=== PATIENT | male | born 1990 | race Caucasian/White ===

== ENCOUNTER 2016-03-15 18:26 | Emergency (ER) | payer BC ==
--- NOTE | 2016-03-15 19:20 | UCPHY ---
H & P Time Seen by Provider: 03/15/16 18:57 Patient Type: New HPI/ROS: This patient has a psychiatric history of mood disorder and [place] from out of state 1 [place] ago from [place]. He ran out of his Seroquel 1 week ago after having taken half dose for the previous month to tried a stretch it out. He reports that he gets anger issues off of his medications and today he felt angry he has reports that he is not certain if he intended to kill himself". He reports that he didn't sleep for 3 days, "things got a little dark & (his) new knife was sharper than (he) thought." He explains that he thinks he only intended to hurt himself given the location he chose to cut -left upper lateral arm. Patient drank to 3 beers at around 2:00 p.m. near the time of the injury. He then tried to repair the wound with a friend with super glue at home prior to coming in for evaluation with his girlfriend. The patient acknowledges that he needs some psychiatric assistance. He understands that I placed him on a an M1 hold & he intends to cooperate. ROS: He denies any headache. No other somatic symptoms except for the pain at the arm. Reports this is moderate. There is also moderate bleeding that slowed with direct pressure. He denies any numbness or tingling associated with this. He admits smoking marijuana in addition but denies any other coingestion is today. Admits desire for self harm but denies homicidal ideation. He reports insomnia for 3 nights with no sleep for 3 nights. 10 point ROS is otherwise negative. 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 He then was in [place] for brief time prior to moving to [place] 1 month ago. Daily marijuana Intermittent alcohol including 3 beers [employer]. He denies any other drug use Smoking Status: Light smoker Physical Exam: Physical Exam Vital signs are normal. General: No acute distress HEENT: Atraumatic. Has alcohol halitosis on his breath. Oropharynx is clear Eyes: Pupils equal and react to light. Extraocular motions are intact. Mild conjunctival injection. Pupils 4 mm equal react to light Lungs: No respiratory distress. Cardiac: Brisk capillary refill is intact throughout. Pulses are 2+ and symmetric in the affected extremity. Skin: No rash or pallor. Patient has a 14 cm full-thickness laceration left upper lateral arm with mild to mod bleeding to the proximal half of the wound. Super glued impregnated in approximately 3 cm of the wound to the lower aspect and is adjacent to the wounds and another 2 cm. Subcutaneous tissues evident but no deeper structures are injured. Neuro: Alert and oriented x3 with no sensorimotor deficits. Maintains normal light touch sensory exam to affected arm and 5/5 strength bilateral upper and lower extremities. Psychiatric: He admits desire for self harm but denies suicidal ideation. He has mildly pressured speech here at times. He admits depression. No psychotic symptoms while in the clinic. Initial differential diagnosis: Cutter, potential suicidal ideation/intent, bella or hypomania, polysubstance abuse, arm laceration -self-induced Constitutional: Initial Vital Signs Temperature (C) 37.1 C 03/15/16 18:55 Heart Rate 76 03/15/16 18:55 Respiratory Rate 18 03/15/16 18:55 Blood Pressure 142/106 H 03/15/16 18:55 O2 Sat (%) 99 03/15/16 18:55 O2 Delivery Mode Room Air Allergies/Adverse Reactions: No Known Allergies Allergy (Verified 03/15/16 19:08) Home Medications: Medication Instructions Recorded Nexium 03/15/16 Seroquel 03/15/16 MDM/Departure - MDM Procedures: The wound is 14 cm full-thickness. The wound was copiously irrigated with saline. The wound was explored for foreign bodies and none were found. The wound was prepped and draped in the normal sterile fashion. Acetone nail- danish remover was required to remove the super glue. This was followed by baby shampoo and saline for scrubbing. The wound was anesthetized using 50 50 mix of 1% plain lidocaine and 0.5% Marcaine, 27 gauge needle, 14 mL with good effect. The edges were reapproximated using 4 0 Ethilon-33 running sutures with good hemostasis and cosmesis. The patient tolerated the procedure well. There were no complications. Dressing is placed ED Course/Re-evaluation: Patient remains pleasant cooperative. He has some insight into his psychiatric illness and realizes that he needs some assistance and is willing to have the admission. He generally denies suicidal intent but admits that he felt and pulse of an angry at the time he cut his arm. He has a history of and near fatal femoral artery self-induced wound this is a certainly warrants further evaluation psychiatrically. I placed him on M1 hold. I spoke with Dr. Bundy at [facility] Emergency department who accepts the patient for transfer - Depart Disposition: [facility] ER Clinical Impression: Self-inflicted laceration of arm, Polysubstance dependence Condition: Fair - PQRS PQRS Measurement: NA
[2016-03-15 20:33] VITALS: TEMP 98.4; O2SAT 97
[2016-03-15] MEDS ORDERED: IBUPROFEN 200 MG TAB PO ONE ×2 (20:45→20:46)
[2016-03-15 22:07] LABS: % IMMATURE GRANULYOCYTES 0.3 % (0.0-1.1); ABSOLUTE IMMATURE GRANULOCYTES 0.02 10^3/uL (0.00-0.10); ADD DIFF? NO; ADD MORPH? NO; ADD SCAN? NO; ATYPICAL LYMPHOCYTE FLAG 10 (0-99); FRAGMENT RBC FLAG 0 (0-99); HEMATOCRIT 44.9 % (40.0-51.0); HEMOGLOBIN 15.5 g/dL (13.7-17.5); LEFT SHIFT FLG 0 (0-99); LIPEMIA HEMOLYSIS FLAG 90 (0-99); MEAN CELL HEMOGLOBIN 29.2 pg (27.9-34.1); MEAN CELL HEMOGLOBIN CONCENTR. 34.5 g/dL (32.4-36.7); MEAN CELL VOLUME 84.6 fL (81.5-99.8); MEAN PLATELET VOLUME 9.1 fL (8.7-11.7); PLATELET CLUMPS FLAG 0 (0-99); PLATELET COUNT 276 10^3/uL (150-400); RED BLOOD CELL COUNT 5.31 10^6/uL (4.40-6.38)
[2016-03-15 22:18] LABS: CHLORIDE 106 mEq/L (97-110)
[2016-03-15 22:21] LABS: ANION GAP 19 mEq/L (8-16); CALCIUM 9.3 mg/dL (8.5-10.4); CARBON DIOXIDE 19 mEq/l (22-31); CREATININE 0.9 mg/dL (0.7-1.3); GLOMERULAR FILTRATION RATE > 60; GLUCOSE 83 mg/dL (70-100); POTASSIUM 3.6 mEq/L (3.5-5.2); SODIUM 144 mEq/L (134-144)
[2016-03-15 22:22] LABS: ETHANOL SERUM 128 mg/dL (0-10)
--- NOTE | 2016-03-16 00:23 | EDPHY ---
H & P Time Seen by Provider: 03/15/16 18:57 HPI/ROS: HPI CHIEF COMPLAINT: Self-inflicted left arm laceration while intoxicated, on M1 hold from [facility] HISTORY OF PRESENT ILLNESS: This patient is a very pleasant 25-year-old male significant past medical history for depression, and takes Seroquel for sleep, he presents to the emergency room after was seen at [facility] urgent care for self inflicted vertical rather large laceration to his left upper extremity. He tells me that he just bought a new knife off [employer] tells me he does enjoy a cutting himself however this was not a suicide attempt he did not Wanna kill himself. He tells me that he did realize how sharp knife was and cut too big of a laceration. This required stitches. This was repaired at [facility]. He then presented from [facility] to the ER as he is on M1 hold. Upon my evaluation he is resting comfortably has no complaints he denies SI he is on M1 hold. He will need mental health evaluation at this time is medically cleared he does tell me that he sustained this laceration self- inflicted while he was drunk with alcohol. 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 Exam Constitutional triage nursing summary reviewed, vital signs reviewed, awake/ alert. Eyes normal conjunctivae and sclera, EOMI, PERRLA. HENT normal inspection, atraumatic, moist mucus membranes, no epistaxis, neck supple/ no meningismus, no raccoon eyes. Respiratory clear to auscultation bilaterally, normal breath sounds, no respiratory distress, no wheezing. Cardiovascular rate normal, regular rhythm, no murmur, no edema, distal pulses normal. Gastrointestinal soft, non-tender, no rebound, no guarding, normal bowel sounds, no distension, no pulsatile mass. Genitourinary no CVA tenderness. Musculoskeletal no midline vertebral tenderness, full range of motion, no calf swelling, no tenderness of extremities, no meningismus, good pulses, neurovascularly intact. Skin pink, warm, & dry, no rash, skin atraumatic. Neurologic awake, alert and oriented x 3, AAOx3, moves all 4 extremities equally, motor intact, sensory intact, CN II-XII intact, normal cerebellar, normal vision, normal speech. Psychiatric normal mood/affect. Heme/Lymph/Immune no lymphadenopathy. Differential Diagnosis: Includes but is not limited to in a particular order, self-inflicted left upper extremity laceration now status post repair, depression, poor sleep hygiene, need for evaluation by mental health given self- inflicted laceration, M1 hold Medical Decision Making: this patient is medically cleared at this time blood work alcohol level reviewed. Laceration is already been repaired. Patient is on M1 hold due to self-inflicted wound. Patient will need mental health evaluation. Re-evaluation at this time 12:37 a.m. this patient is not suicidal his, cooperative he speaks coherently to me he tells me this was an accident he did not realize it was going to be such a large laceration and he was drunk when this happened. He will get a mental health evaluation most likely be discharged home. 0130: patient seen evaluated by myself as well as mental health. Patient is not suicidal they did consult Dr. Arias the psychiatrist she feels that the patient does not need to remain on M1 hold to be discharged safely from the emergency room they did request that I prescribe a limited supply of Seroquel which I will. Patient does understand if he feels suicidal more depressed or has any questions or concerns return to the ER. Source: Patient, EMS - Personal History Current Tetanus Diphtheria and Acellular Pertussis (TDAP): Yes Tetanus Vaccine Date: 2013? - Medical/Surgical History Hx Asthma: No Hx Chronic Respiratory Disease: No Other PMH: Med hx-depression/Gerd. Surg- - Social History Smoking Status: Light smoker Constitutional: Initial Vital Signs Temperature (C) 37.1 C 03/15/16 18:55 Heart Rate 76 03/15/16 18:55 Respiratory Rate 18 03/15/16 18:55 Blood Pressure 142/106 H 03/15/16 18:55 O2 Sat (%) 99 03/15/16 18:55 O2 Delivery Mode Room Air Allergies/Adverse Reactions: No Known Allergies Allergy (Verified 03/15/16 19:08) Home Medications: Medication Instructions Recorded Nexium 03/15/16 Seroquel 03/15/16 QUEtiapine FUMARATE [Seroquel 200 200 mg PO DAILY #10 tab 03/16/16 mg (*)] Medical Decision Making - Data Points Laboratory Results: Laboratory Results 03/15/16 21:40 03/15/16 21:40 03/15/16 03/15/16 21:40 21:17 WBC 5.80 10^3/uL (3.80-9.50) RBC 5.31 10^6/uL (4.40-6.38) Hgb 15.5 g/dL (13.7-17.5) Hct 44.9 % (40.0-51.0) MCV 84.6 fL (81.5-99.8) MCH 29.2 pg (27.9-34.1) MCHC 34.5 g/dL (32.4-36.7) RDW 12.0 % (11.5-15.2) Plt Count 276 10^3/uL (150-400) MPV 9.1 fL (8.7-11.7) Neut % (Auto) 46.0 % (39.3-74.2) Lymph % (Auto) 44.8 % (15.0-45.0) Davison % (Auto) 7.8 % (4.5-13.0) Eos % (Auto) 0.2 L % (0.6-7.6) Baso % (Auto) 0.9 % (0.3-1.7) Nucleat RBC Rel Count 0.0 % (0.0-0.2) Absolute Neuts (auto) 2.67 10^3/uL (1.70-6.50) Absolute Lymphs (auto) 2.60 10^3/uL (1.00-3.00) Absolute Monos (auto) 0.45 10^3/uL (0.30-0.80) Absolute Eos (auto) 0.01 L 10^3/uL (0.03-0.40) Absolute Basos (auto) 0.05 10^3/uL (0.02-0.10) Absolute Nucleated RBC 0.00 10^3/uL (0-0.01) Immature Gran % 0.3 % (0.0-1.1) Immature Gran # 0.02 10^3/uL (0.00-0.10) Sodium 144 mEq/L (134-144) Potassium 3.6 mEq/L (3.5-5.2) Chloride 106 mEq/L (97-110) Carbon Dioxide 19 L mEq/l (22-31) Anion Gap 19 mEq/L (8-16) BUN 10 mg/dL (7-23) Creatinine 0.9 mg/dL (0.7-1.3) Estimated GFR > 60 Glucose 83 mg/dL (70-100) Calcium 9.3 mg/dL (8.5-10.4) Urine Opiates Screen NEGATIVE (NEGATIVE) Acetaminophen < 10 L mcg/mL (10.0-30.0) Urine Barbiturates NEGATIVE (NEGATIVE) Ur Phencyclidine Scrn NEGATIVE (NEGATIVE) Ur Amphetamine Screen NEGATIVE (NEGATIVE) U Benzodiazepines Scrn NEGATIVE (NEGATIVE) Urine Cocaine Screen NEGATIVE (NEGATIVE) U Marijuana (THC) Screen NON-NEGATIVE H (NEGATIVE) Ethyl Alcohol 128 H mg/dL (0-10) Medications Given: Discontinued Medications Ibuprofen (Motrin) 600 mg PO EDNOW ONE Stop: 03/15/16 20:46 Last Admin: 03/15/16 20:48 Dose: 600 mg Departure - Departure Disposition: Home, Routine, Self-Care Clinical Impression: Self-inflicted laceration of arm, Polysubstance (excluding opioids) dependence Condition: Fair Instructions: Laceration (ED), Care For Your Stitches (ED) Additional Instructions: 1.Please monitor your wound closely for signs of infection 2. please have your sutures removed in 10-12 days. 3. Return emergency room if develops any worsening symptoms questions or concerns. Referrals: NONE *PRIMARY CARE P,. [Primary Care Provider] - As per Instructions Prescriptions: QUEtiapine FUMARATE [Seroquel 200 mg (*)] 200 mg PO DAILY #10 tab
[2016-03-16 03:35] VITALS: RESP 16
[2016-03-16 03:36] VITALS: BP 144/92; PULSE 89
== END 2016-03-16 03:35 | disposition home or self-care (01) ==
LOC: CED 18:26
DX: S41.112A Laceration without foreign body of left upper arm, initial encounter (principal); F19.10 Other psychoactive substance abuse, uncomplicated; F17.200 Nicotine dependence, unspecified, uncomplicated; X78.1XXA Intentional self-harm by knife, initial encounter
CPT/HCPCS: 80305; G0463-PO; G0480

== ENCOUNTER 2016-05-17 16:56 | Inpatient (IN) | payer BC ==
[2016-05-17 17:18] LABS: % IMMATURE GRANULYOCYTES 0.2 % (0.0-1.1); ABSOLUTE IMMATURE GRANULOCYTES 0.02 10^3/uL (0.00-0.10); ADD DIFF? NO; ADD MORPH? NO; ADD SCAN? NO; ATYPICAL LYMPHOCYTE FLAG 0 (0-99); FRAGMENT RBC FLAG 0 (0-99); HEMATOCRIT 49.6 % (40.0-51.0); HEMOGLOBIN 16.9 g/dL (13.7-17.5); LEFT SHIFT FLG 0 (0-99); LIPEMIA HEMOLYSIS FLAG 90 (0-99); MEAN CELL HEMOGLOBIN 28.8 pg (27.9-34.1); MEAN CELL HEMOGLOBIN CONCENTR. 34.1 g/dL (32.4-36.7); MEAN CELL VOLUME 84.6 fL (81.5-99.8); MEAN PLATELET VOLUME 9.5 fL (8.7-11.7); PLATELET CLUMPS FLAG 0 (0-99); PLATELET COUNT 281 10^3/uL (150-400); RED BLOOD CELL COUNT 5.86 10^6/uL (4.40-6.38); RED CELL DISTRIBUTION WIDTH 12.2 % (11.5-15.2)
[2016-05-17 17:28] LABS: ANION GAP 14 mEq/L (8-16); CALCIUM 10.4 mg/dL (8.5-10.4); CARBON DIOXIDE 18 mEq/l (22-31); CHLORIDE 108 mEq/L (97-110); CREATININE 0.8 mg/dL (0.7-1.3); ETHANOL SERUM < 10 mg/dL (0-10); GLOMERULAR FILTRATION RATE > 60; GLUCOSE 80 mg/dL (70-100); POTASSIUM 4.8 mEq/L (3.5-5.2); SALICYLATE < 1.0 mg/dL (2.0-20.0); SODIUM 140 mEq/L (134-144); SPECIMEN HEMOLYSIS 119
--- NOTE | 2016-05-17 17:48 | EDPHY ---
H & P Smoking Status: Light smoker Time Seen by Provider: 05/17/16 17:02 HPI/ROS: CHIEF COMPLAINT: M1 suicidal ideation HISTORY OF PRESENT ILLNESS: 25-year-old male history of depression, history of suicide attempt, in the ER on an M1 hold after endorsing increasing depression with plan to kill himself with a gun. He does have access to a gun. Prior history of cutting behavior. Denies recently. Off of medications. denies self -injury recently. Denies complaints of physical pain. Denies alcohol or drug use. REVIEW OF SYSTEMS: A ten point review of systems was performed and is negative with the exception of the items mentioned in the HPI PAST MEDICAL & SURGICAL HISTORY: depression SOCIAL HISTORY: denies alcohol or drug use PHYSICAL EXAM (Prior to examination, patient consented to physical exam, hands were washed and my usual and customary physical exam procedures followed) 1) GENERAL: Well-developed, well-nourished, alert and oriented. Depressed, flat affect . 2) HEAD: Normocephalic, atraumatic 3) HEENT: Pupils equal, round, reactive to light bilaterally. Sclera anicteric. Nasopharynx, oropharynx, clear, no lesions. Ears bilaterally with normal tympanic membranes. 4) NECK: Full range of motion, no meningeal signs. 5) LUNGS: Clear auscultation bilaterally, no wheezes, no rhonchi, no retractions. 6) HEART: Regular rate and rhythm, no murmur, no heave, no gallop. 7) ABDOMEN: No guarding, no rebound, no focal tenderness, negative McBurney's, negative Amanda's, negative Rovsing's, negative peritoneal sign, 8) MUSCULOSKELETAL: Moving all extremities, no focal areas of tenderness, no obvious trauma. No peripheral edema or discoloration. 9) BACK: No CVA tenderness, no midline vertebral tenderness, no fluctuance, no step-off, no obvious trauma, no visual or palpable abnormality. 10) SKIN: multiple linear scars, none acute 11) Psychiatric: Patient is oriented X 3, depressed, flat affect. Calm cooperative DIFFERENTIAL DIAGNOSIS: [ in no particular include but limited to suicidal ideation homicidal ideation, depression (Genaro,Jinny Sheron) Constitutional: Initial Vital Signs Temperature (C) 37.5 C 05/17/16 17:09 Heart Rate 66 05/17/16 17:09 Respiratory Rate 20 05/17/16 17:09 Blood Pressure 163/91 H 05/17/16 17:09 O2 Sat (%) 99 05/17/16 17:09 O2 Delivery Mode Room Air Allergies/Adverse Reactions: No Known Allergies Allergy (Verified 03/15/16 19:08) Home Medications: Medication Instructions Recorded Melatonin [Melatonin 3 MG (*)] 3 mg PO HS PRN 05/17/16 MDM/Departure - MDM Medications Given: Discontinued Medications Quetiapine Fumarate (Seroquel) 150 mg PO HS KYLEE Stop: 11/13/16 22:59 Last Admin: 05/17/16 23:01 Dose: 150 mg ED Course/Re-evaluation: 9:00 p.m. patient has been evaluated by mental health and has been accepted for admission to [address] [place] [address] (Duarte Conley) - Depart Disposition: [facility] IP Clinical Impression: Suicidal ideation, Severe major depression Condition: Fair
[2016-05-17] MEDS ORDERED: ACETAMINOPHEN 325 MG TAB PO PRN (22:47)
[2016-05-17] MEDS ORDERED: MAG HYDROX/AL HYDROX/SIMETH 30 ML UDCUP PO PRN (22:48)
[2016-05-17] MEDS ORDERED: MAGNESIUM HYDROXIDE 30 ML UDCUP PO PRN (22:48)
[2016-05-17] MEDS ORDERED: QUEtiapine FUMARATE 50 MG TAB PO SCH (23:00)
--- NOTE | 2016-05-18 09:03 | GCON ---
[f rep st] CONSULTATION DATE OF CONSULTATION: 05/18/2016 The patient is a 25-year-old gentleman with a history of depression admitted to [facility]. I am seeing him on 05/18/2016. The patient was admitted with suicidality with a plan and a gun. When I speak with him, he denies f ever, chills, cough, sputum, nausea, vomiting, diarrhea, recent unexplained weight loss or night swe ats. There was some concern over some erythema on his knee which is his left knee. He has not had fever, chills or lymphangitic streaking or pain in his groin. He says he had a recent laceration that was subsequently super glued and some of the super glue ripped off his skin leaving an eschar which he then disturbed during intercourse. He is a nonsmoker, nondrinker and does not use IV drugs. REVIEW OF SYSTEMS: Complete 10-point review of systems conducted. Negative except as noted in the HPI. PAST MEDICAL HISTORY: 1. Depression. 2. Reflux. ALLERGIES: No known drug allergies. HOME MEDICATIONS: Nexium. SOCIAL HISTORY: The patient is a nonsmoker, nondrinker. Originally from [place]. Lives here in [facility] with a roommate and an ex-girlfriend. FAMILY HISTORY: Reviewed and unremarkable. PHYSICAL EXAMINATION: PRESENTING VITALS: Blood pressure 163/91, pulse 66, breathing 20 times a min aby, 99% on room air. Temp 37.5. He did have a pulse of 114 at 6:00 a.m. this morning. GENERAL: No acute distress. HEENT: Sclerae anicteric. Oropharynx clear. Mucous membranes moist. NECK: S upple, without lymphadenopathy. JVD. LUNGS: Clear to auscultation bilaterally. HEART: S1, S2. ABDOMEN: Soft, nontender, nondistended. LOWER EXTREMITIES: His left knee cap just over the patell a shows about 2.5 cm lateral incision that has been super glued shut, is actually quite a good job. Lateral to that is an eschar with some surrounding erythema consistent with a healing eschar. Ther e is no lymphangitic streaking. There is no tenderness. There is no fluctuance. There is no ingui nal lymphadenopathy on that side. Skin otherwise without rash. NEUROLOGIC: Nonfocal. LABS: Sodium 140, potassium 4.8, chloride 108, bicarb 18, anion gap is 14, BUN 14, creatinine 0.8, glucose is 80, calcium 10.4. White count 10.6, hematocrit 49.6, platelets are 281,000. Tox screen is negative for marijuana, otherwise unremarkable. There is no imaging. I have discussed the case with psychiatry MD. ASSESSMENT AND PLAN: This is a 25-year-old gentleman with depression. He is admitted with suicidal ity. 1. Suicidality management per psych. The patient is not actively complaining of suicidality to me. 2. Question cellulitis of his leg. I do not believe this represents cellulitis. I think that the erythema is consistent with somebody with a pale complexion and a healing wound. He has no secondar y evidence of infection and his white count is only modestly elevated. Would follow. The indicatio ns for antibiotics would be fever, fluctuance, etc. 3. Acidosis. This is actually chronic. Looking back at his previous labs, he had a bicarb of 19 d uring his last hospitalization as well. Would follow. 4. Tachycardia. This is transient this morning. Would follow. He has not been tachycardic for th e rest of his vitals and would follow at this time. 5. Reflux. I have written him for Protonix. 6. A medical evaluation of psychiatric inpatient. TSH has not been checked. I have added it on. Please call if it is abnormal. Thank you for the consultation. Hospital Medicine will not follow. /[id number]
[2016-05-18] MEDS: PANTOPRAZOLE SODIUM 40 MG TAB PO SCH (09:10)
[2016-05-18] MEDS ORDERED: OLANZapine DISINTEGR 10 MG TAB PO PRN (17:02)
[2016-05-18] MEDS: LORazepam 1 MG TAB PO PRN (18:07)
[2016-05-18] MEDS: QUEtiapine FUMARATE 300 MG TAB PO SCH (20:40)
[2016-05-19 06:22] VITALS: O2SAT 96
[2016-05-19] MEDS: PANTOPRAZOLE SODIUM 40 MG TAB PO SCH (08:39)
[2016-05-19] MEDS: LORazepam 1 MG TAB PO PRN (08:50)
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
--- NOTE | 2016-05-19 17:54 | SOAPPROG ---
SOAP Progress Note Assessment/Plan: Assessment:Patient with Unspecified bipolar disorder, Cannabis Use Disorder, severe, in forced remission in a controlled environment, and unspecified alcohol use disorder reporting he feels much better today. Sleep and mood are fine today. He is tolerating the Seroquel. No safety issues. Plan: Will continue medications and treatment. Awaiting records from [facility]. 05/19/16 17:51 Subjective: He reports feel pretty great today. He is no longer feeling miserable. He denies problems with sleep last night. He denies irritability. He had a good conversation with his mother this AM, and he was able to speak briefly to his ex -girlfriend. He is feeling more hopeful. He denies SI. He believes he will have enough support if he remains in [place] after discharge. He did attend all the groups today, and he was complaint with medications. Objective: Vital Signs Temp Pulse Resp BP Pulse Ox 36.8 C 60 12 110/62 96 05/19/16 06:00 05/19/16 06:00 05/19/16 06:00 05/19/16 06:00 05/19/16 06:00 Obese, male sitting on the side of the bed. Fair eye contact (looks today a lot. Speech- Regular rate, limited inflection.Mood- "Pretty great." Affect- Euthymic. Thought Process- linear and gaol directed. Thought Content - No SI/HI. No AH/VH. - Time Spent With Patient Time Spent With Patient: 15 - Pending Discharge Pending Discharge Within 24 Hours: No Pending Discharge Within 48 Hours: No ICD10 Worksheet Patient Problems: Problems Problem Status Onset Severe major depression Acute Suicidal ideation Acute
[2016-05-19] MEDS: QUEtiapine FUMARATE 300 MG TAB PO SCH (20:15)
[2016-05-20] MEDS: PANTOPRAZOLE SODIUM 40 MG TAB PO SCH (09:16)
--- NOTE | 2016-05-20 13:44 | SOAPPROG ---
SOAP Progress Note Assessment/Plan: Assessment:Patient with Unspecified bipolar disorder, Cannabis Use Disorder, severe, in forced remission in a controlled environment, and unspecified alcohol use disorder reporting he feels much better today. Sleep and mood are fine today. He is tolerating the Seroquel. No safety issues. Plan: Will continue medications and treatment. Awaiting records from [facility] - not likely to receive before discharge. Guns to be disposed of. Likely discharge tomorrow. 05/19/16 17:51 05/20/16 13:40 Subjective: He reports things are going well. He had questions about his follow-up. He reports his roommates did get rid of the guns, and he signed a release so that Hussein can talk with them. He feels that the 300 MG of Seroquel is working well for his sleep and mood. Objective: Vital Signs Temp Pulse Resp BP Pulse Ox 36.9 C 63 14 115/71 96 05/20/16 06:00 05/20/16 06:00 05/20/16 06:00 05/20/16 06:00 05/20/16 06:00 Obese, male, good eye contact. Speech- RRR and tone. Mood- "Good." Affect- bright. Thought Process- linear and goal directed. Thought Content- No SI/HI. No AH/VH. - Time Spent With Patient Time Spent With Patient: 15 - Pending Discharge Pending Discharge Within 24 Hours: Yes Pending Discharge Within 48 Hours: Yes Pending Discharge Date: 05/21/16 Pending Discharge Time: 11:00 ICD10 Worksheet Patient Problems: Problems Problem Status Onset Severe major depression Acute Suicidal ideation Acute
[2016-05-20] MEDS: QUEtiapine FUMARATE 300 MG TAB PO SCH (20:15)
[2016-05-21 06:18] VITALS: BP 111/72; PULSE 84; RESP 15; TEMP 97.4
[2016-05-21] MEDS: PANTOPRAZOLE SODIUM 40 MG TAB PO SCH (12:31)
--- NOTE | 2016-05-21 17:18 | BDS ---
[f rep st] BEHAVIORAL HEALTH DISCHARGE SUMMARY ADMISSION DIAGNOSES: Unspecified bipolar disorder, attention deficit hyperactivity disorder by history, Asperger spectrum disorder, oppositional defiant disorder by history, cannabis use disorder, severe, enforced remission in a controlled environment, unspecified alcohol use disorder. REASON FOR ADMISSION: The patient was admitted to the hospital secondary to suicidal ideation. The patient reportedly had thoughts of taking a gun and shooting himself, and he did have access to a gun. The patient had recently come to believe that he had lost his job after he left his job in a fit of rage. He also had recently broken up with his girlfriend who was concerned about his fits of rage. PHYSICAL EXAMINATION: On physical examination at the time of admission, the patient was noted to have a history of reflux and he used Nexium to treat that on an outpatient basis. There was some question of cellulitis of his leg although this ultimately appears to have been ruled out. Instead it was felt to be erythema consistent with his pale complexion and a healing wound. He was noted to have some chronic acidosis that was just going to be followed. No treatment was called for at the time of his admission. He had some transient tachycardia that was also just going to be followed. ADMISSION LABORATORY VALUES: He again had the acidosis. There appeared to be nothing else of concern other than the fact that he did test positively for marijuana. HOSPITAL COURSE: The patient was started back on the Seroquel which he had previously taken as an outpatient. The Seroquel was increased to 300 mg daily, which was thought to be the minimum dosage to treat any type of mood disorder or psychotic symptoms. The patient did respond well to that dosage of medication. He stated he was sleeping well. His anxiety was relatively tame and his mood was stabilized. He was denying any further thoughts of wanting to harm himself. He had no thoughts of harming others. The patient did attend groups. He took his medications without problems. He got along well with peers and staff. On the unit, discussions were had with the patient about his guns. He did sign a release of information so that contact might be made with his ex-girlfriend and his other roommate. His ex-girlfriend did dispose of the guns in her car trunk, which she said he did not have access to, and the patient was not aware of where the guns had been disposed of. CONDITION AT DISCHARGE: At time of discharge, the patient was denying any thoughts of hurting himself or others. He was feeling very hopeful in that he had learned that he had not lost his job and there might be some hope for his relationship with his girlfriend. He had plans to go to the outpatient program located at [facility], and he had an appointment for May 26. He had plans to continue to take his Seroquel as prescribed. DISCHARGE DIAGNOSIS: Unspecified bipolar disorder, Asperger spectrum disorder, attention deficit hyperactivity disorder by history, oppositional defiant disorder by history, cannabis use disorder, sever, in forced remission in a controlled environment, unspecified alcohol used disorder. /[id number]/MODL MTDD
== END 2016-05-21 12:40 | disposition home or self-care (01) | DRG 885 ==
LOC: EDUNIT# → BBEH 22:15
PROVIDERS: ADMIT Psychiatry & Neurology Psychiatry; ATTEND Psychiatry & Neurology Psychiatry
DX: F31.9 Bipolar disorder, unspecified (principal); K21.9 Gastro-esophageal reflux disease without esophagitis; R00.0 Tachycardia, unspecified; F12.20 Cannabis dependence, uncomplicated; R45.851 Suicidal ideations; E87.2 Acidosis; F90.9 Attention-deficit hyperactivity disorder, unspecified type
CPT/HCPCS: 80305; G0480